=== PATIENT | male | born 1950 | race Caucasian/White ===

== ENCOUNTER → 2016-10-16 | Outpatient (CLI) | payer BC | LOC: RAD 13:02 | PROVIDERS: ATTEND Family Medicine | DX: N63 Unspecified lump in breast (principal); D17.79 Benign lipomatous neoplasm of other sites | CPT/HCPCS: 76642; G0204 ==

== ENCOUNTER → 2016-11-30 | Outpatient (CLI) | payer BC ==
[2016-11-30 10:41] LABS: ANION GAP 13.6 MEQ/L (3-15)
== END ==
LOC: LAB 10:02
PROVIDERS: ATTEND Family Medicine
DX: Z00.01 Encounter for general adult medical examination with abnormal findings (principal); M25.561 Pain in right knee; M25.562 Pain in left knee
CPT/HCPCS: 36415; 80048; 84550